=== PATIENT | male | born 1990 | race American Indian/Alaskan Native ===

== ENCOUNTER 2019-01-22 08:13 | Emergency (ER) | payer OTHER ==
[2019-01-22 08:20] VITALS: BP 128/81
[2019-01-22] MEDS ORDERED: TORADOL IV ONE (08:59)
[2019-01-22] MEDS ORDERED: PROTONIX IV ONE (08:59)
[2019-01-22] MEDS ORDERED: LACTATED RINGERS 1,000 ML IV ONE (08:59)
[2019-01-22] MEDS ORDERED: ZOFRAN IV ONE (08:59)
--- NOTE | 2019-01-22 09:18 | Emergency Department Report ---
ED Abdominal Pain HPI - General Chief Complaint: Abdominal Pain Stated Complaint: STOMACH PAIN Time Seen by Provider: 01/22/19 08:57 Source: patient Mode of arrival: Ambulatory Limitations: No Limitations - History of Present Illness Initial Comments: abdominal pain x a few days states started as n/v/d though that has resolved pain diffuse, worse after eating but overall constant MD Complaint: abdominal pain -: Gradual, days(s) (2) Location: diffuse Radiation: none Migration to: no migration Severity: moderate Severity scale (0 -10): 6 Quality: cramping, aching Consistency: constant Improves With: nothing Worsens With: eating Associated Symptoms: denies other symptoms - Related Data Previous Rx's Medication Instructions Recorded Last Taken Type Hyoscyamine Subl [Levsin Sl 0.125 0.125 mg SL Q6HR PRN #20 tablet 01/22/19 Unknown Rx TAB] traMADol [Ultram 50 MG tab] 50 mg PO Q6HR PRN #12 tablet 01/22/19 Unknown Rx Allergies Allergy/AdvReac Type Severity Reaction Status Date / Time No Known Allergies Allergy Unverified 01/22/19 08:15 ED Review of Systems ROS: Stated complaint: STOMACH PAIN Other details as noted in HPI Comment: All other systems reviewed and negative Constitutional: denies: chills, fever Cardiovascular: denies: chest pain, palpitations Endocrine: no symptoms reported Gastrointestinal: denies: abdominal pain, nausea, diarrhea Genitourinary: denies: urgency, dysuria Musculoskeletal: denies: back pain, joint swelling, arthralgia Skin: denies: rash, lesions ED Past Medical Hx - Social History Smoking Status: Never Smoker Substance Use Type: Alcohol, Marijuana - Medications Home Medications: Home Medications Medication Instructions Recorded Confirmed Last Taken Type Hyoscyamine Subl [Levsin Sl 0.125 0.125 mg SL Q6HR PRN #20 tablet 01/22/19 Unknown Rx TAB] traMADol [Ultram 50 MG tab] 50 mg PO Q6HR PRN #12 tablet 01/22/19 Unknown Rx ED Physical Exam - General Limitations: No Limitations General appearance: alert, in no apparent distress - Head Head exam: Present: atraumatic, normocephalic - Eye Eye exam: Present: normal appearance - ENT ENT exam: Present: mucous membranes moist - Neck Neck exam: Present: normal inspection, full ROM - Respiratory Respiratory exam: Present: normal lung sounds bilaterally. Absent: respiratory distress - Cardiovascular Cardiovascular Exam: Present: regular rate, normal rhythm. Absent: systolic murmur, diastolic murmur, rubs, gallop - GI/Abdominal GI/Abdominal exam: Present: soft, tenderness (diffusely), normal bowel sounds. Absent: distended, guarding, rebound, rigid - Rectal Rectal exam: Present: deferred - Extremities Exam Extremities exam: Present: normal inspection - Back Exam Back exam: Present: normal inspection - Neurological Exam Neurological exam: Present: alert, oriented X3 - Psychiatric Psychiatric exam: Present: normal affect, normal mood - Skin Skin exam: Present: warm, dry, intact, normal color. Absent: rash ED Course Vital Signs 01/22/19 08:19 Temperature 98.3 F Pulse Rate 92 H Respiratory 18 Rate Blood Pressure 128/81 O2 Sat by Pulse 100 Oximetry - Reevaluation(s) Reevaluation #1: 01/22/19 12:11 repeat exam benign workup = mild colitis ED Medical Decision Making - Lab Data Result diagrams: 01/22/19 09:16 01/22/19 09:16 - Radiology Data Radiology results: report reviewed, image reviewed mild enterocolitis - Medical Decision Making abdominal pain x a few days, diffusely tender on exam will check labs, CT given IVF, ketorolac, zofran CT = mild enterocolitis labs unremarkable recommend supportive care w/ pcp f/u would recommend holding abx presently- normal WBC, diarrhea resolved fu closely PCP/GI RTER if worse - Differential Diagnosis gastritis, PUD, colitis, appendicitis Critical care attestation.: If time is entered above; I have spent that time in minutes in the direct care of this critically ill patient, excluding procedure time. ED Disposition Clinical Impression: Enterocolitis Disposition: - TO HOME OR SELFCARE Is pt being admited?: No Condition: Good Instructions: Infectious Colitis (ED) Prescriptions: Hyoscyamine Subl [Levsin Sl 0.125 TAB] 0.125 mg SL Q6HR PRN #20 tablet PRN Reason: Spasms traMADol [Ultram 50 MG tab] 50 mg PO Q6HR PRN #12 tablet PRN Reason: Pain Referrals: WARNER MCGRAWMICHAEL CENTENO MD [Primary Care Provider] - 3-5 Days PARUL PATTERSON MD [Staff Physician] - 3-5 Days Time of Disposition: 12:07
[2019-01-22 09:28] LABS: Basophils % (Auto) 0.3 % (0.0-1.8); Eosinophils % (Auto) 0.7 % (0.0-4.3); Hematocrit 43.2 % (35.5-45.6); Hemoglobin 14.5 gm/dl (11.8-15.2); Lymphocytes # (Auto) 1.9 K/mm3 (1.2-5.4); Lymphocytes % (Auto) 36.9 % (13.4-35.0); Mean Corpuscular HGB Conc 34 % (32-34); Mean Corpuscular Volume 85 fl (84-94); Monocytes # (Auto) 0.3 K/mm3 (0.0-0.8); Monocytes % (Auto) 6.8 % (0.0-7.3); Platelet Count 164 K/mm3 (140-440); Red Blood Count 5.06 M/mm3 (3.65-5.03)
[2019-01-22 09:51] LABS: Alanine Aminotransferase 16 units/L (7-56); Albumin 4.4 g/dL (3.9-5); BUN/Creatinine Ratio 9; Blood Urea Nitrogen 10 mg/dL (9-20); Calcium 8.7 mg/dL (8.4-10.2); Hemolysis Index 12
--- NOTE | 2019-01-22 12:00 | Cat Scan Report ---
PROCEDURE: CT ABDOMEN PELVIS W CON TECHNIQUE: Computerized axial tomography of the abdomen and pelvis was performed after the IV injecti on of iodinated nonionic contrast. Coronal and sagittal reconstructed imaging provided. CT DOSE LENGTH PRODUCT: 1609.02 mGy-cm. HISTORY: abd pain COMPARISONS: None currently available. FINDINGS: Abdomen: Lung bases and images of the heart are grossly unremarkable. Liver, gallbladder, stomach, spleen with calcified granulomas, pancreas, adrenals, and kidneys are un remarkable. No aneurysm. No dissection. No significant atherosclerotic disease. IVC is unremarkable. There is no periaortic or retroperitoneal adenopathy or mass. Sections of the colon are collapsed which limits evaluation for wall thickening. Mild wall thickening of the ascending colon to the proximal descending colon suspected. No significant stranding. Terminal ileum is unremarkable. Appendix is normal. Mild wall thickening of the proximal and mid small bowel loops without distention or air-fluid levels . No free air. No free fluid. Mesentery is unremarkable. Pelvis: Limited CT images of the prostate are unremarkable. Bladder: Unremarkable. No wall thickening. There is no pelvic mass or adenopathy. Inguinal regions are unremarkable. Bones: No suspicious osseous lesions on this limited examination of the skeleton. Metastatic disease better evaluated with bone scan. IMPRESSION: * Suspect mild enteritis or enterocolitis without perforation, abscess, or obstruction. This document is electronically signed by Mauricio Henry MD., Jan 22 2019 11:59:09 AM ET
== END 2019-01-22 12:40 | disposition home or self-care (01) ==
LOC: ED 08:13
DX: K52.9 Noninfective gastroenteritis and colitis, unspecified (principal); F12.10 Cannabis abuse, uncomplicated
CPT/HCPCS: 36415; 74177; 80053; 83690; 85025; 96361; 96374; 96375; 99284; J1885; J2405; J7120; Q9967